=== PATIENT | female | born 1945 | race Caucasian/White ===

== ENCOUNTER 2018-11-11 15:30 | Outpatient (RCR) | payer MEDICARE, SELFPAY | END 2018-11-23 16:00 | disposition home or self-care (01) | LOC: PT 15:30 | PROVIDERS: Visit Provider Family Medicine | DX: M54.2 Cervicalgia (principal); G44.89 Other headache syndrome | CPT/HCPCS: 97012; 97014; 97110; 97140; 97163; G0283 ==

== ENCOUNTER → 2020-08-17 08:25 | Outpatient (CLI) | payer MEDICARE, SELFPAY ==
[2020-08-17 11:41] LABS: Coronavirus 19 IgG Antibody Negative (Negative); Coronavirus 19 IgM Antibody Negative (Negative)
== END ==
PROVIDERS: Visit Provider Internal Medicine Gastroenterology
DX: Z01.89 Encounter for other specified special examinations (principal); Z12.11 Encounter for screening for malignant neoplasm of colon
CPT/HCPCS: 36415; 86328

== ENCOUNTER 2020-08-18 08:28 | Day surgery (SDC) | payer MEDICARE, SELFPAY ==
[2020-08-10 15:04] VITALS: BMI 24.8
[2020-08-18 08:49] VITALS: BP 188/65; PULSE 71; RESP 18; TEMP 36.4; O2SAT 98
[2020-08-18 09:46] VITALS: O2SAT 99
--- NOTE | 2020-08-18 09:52 | HMH.ANESCL ---
[facility] Anesthesia Checklist - Patient Identification Patient Identification: Arm Band - Structural Data Admitted From: Home Planned Operative Procedure/s: colonoscopy Consent for Planned Operative Procedure(s) Verified: Yes Verified Documents: Surgical Consent, History and Physical - NPO Status Verified Time NPO: 00:00 - Additional verifications Anesthesia Reactions: No - Airway Assessment C-Spine Mobility Assessed: Yes (mp2) TMJ Mobility Assessed: Yes Dentition: Good Dentition - Neurological Assessment Level of Consciousness: Awake, Alert - Anesthesia Plan Anesthesia Risk discussed: Yes Anesthesia Plan: Verified ASA Class: II Anesthesia Type: MAC [facility] History I have reviewed the patient's past medical history: Yes Medical History: Reports:: Anxiety, Cancer (skin cancer), Gastroesophageal Reflux Disease(GERD), Hyperlipidemia, Hypertension Denies:: Diabetes Mellitus Type 1, Diabetes Mellitus Type 2, Internal Pacemaker, MRSA, Seizures *Have you ever received a pneumonia vaccine?: Yes *Have you received a flu vaccine this season?: Yes Anesthesia experience/problems:: nac Other Surgeries: Yes: Cancer Surgery (skin), Cholecystectomy, Hysterectomy-Total. No: Pacemaker Amputation: No Fractures: No - *Social History Smoking Status: Never smoker Alcohol Intake: never Substance Use Type: denies use *Occupational Status:: retired Housing: house Household Members: family *Travel in the last 8 weeks: None Family Hx:: No significant family history
--- NOTE | 2020-08-18 10:12 | P.PCN_ITS ---
[facility] Procedure Note Procedure Note:: Colonoscopy Procedure Report: Colonoscopy with cold snare polypectomy Endoscopist: Omar Zuniga II, MD Referring physician: Cory Russell MD Date of Procedure: August 18, 2020 Equipment: Olympus 180 variable stiffness pediatric colonoscope Sedation: MAC sedation Indication: Mrs. Mohan is a 75-year-old female who is here for follow-up screening/surveillance colonoscopy secondary to a personal history of colon polyps (adenomatous polyps). She had a colonoscopy in March 2001 and had a mucosal prolapse polyp removed. Her colonoscopy in May 2004 revealed a diminutive polyp (tubular adenoma x1). Her colonoscopy in February 2010 revealed a single polyp (tubular adenoma) which was removed. Her last colonoscopy revealed 2 small polyps (hyperplastic polyp x1/tubular adenoma x1) which were removed. She is here for follow-up surveillance. She reports no abdominal pain but does get some right flank pain intermittently. She reports no rectal bleeding, change in her bowel habits or weight loss. She reports no family history of colon cancer. Procedure: Prior to the procedure, a history and physical exam was performed, and patient's medications and allergies were reviewed. The risks, benefits and alternatives of the sedation and procedure were discussed with the patient. All questions we re answered and informed consent was obtained. The patient was brought to the procedure room. Patient identification and proposed procedure were verified by the physician and the nurse. The patient was placed in a left lateral decubitus position and the scope was passed under direct vision. Throughout the procedure, the patient's blood pressure, pulse, and oxygen saturations were monitored continuously. The colonoscopy was accomplished without difficulty. The patient tolerated the procedure well. Findings: On digital rectal examination there was normal rectal tone. There were no external hemorrhoids. The colonoscope was introduced through the anal canal to the rectum and advanced to the cecum. The ileocecal valve and appendiceal orifice were identified. The scope was advanced a short distance into the ileum which appeared grossly normal. The scope was then withdrawn into the colon. The cecum, ascending and transverse colon were normal. There were 4 diminutive polyps (descending x2 (4 and 1 mm) and sigmoid x2 (4 and 4 mm)) which were removed via cold snare polypectomy. The remainder of the descending, sigmoid and rectum were normal. There were no other mucosal abnormalities. Upon retroflexion within the rectum there were grade 1 internal hemorrhoids.The preparation was excellent throughout with [place] Preparation Score of 9. The cecal time was 12 minutes. Impression: 1. Diminutive colonic polyps x4 2. Grade 1 internal hemorrhoids Plan: I will follow up the polyp pathology and recommend repeat colonoscopy again in 5 years based upon the polyp histology and number of polyps. I would encourage fiber supplementation on a long-term daily maintenance basis.
[2020-08-18 10:15] VITALS: BP 137/64; PULSE 64; RESP 16; TEMP 36.3; O2SAT 96
[2020-08-18 10:25] VITALS: BP 137/74; PULSE 56; RESP 16; TEMP 36.3; O2SAT 95
[2020-08-18 10:35] VITALS: BP 145/67; PULSE 66; RESP 18; TEMP 36.3; O2SAT 95
[2020-08-18 10:52] VITALS: BP 138/79; PULSE 68; RESP 18; TEMP 36.3; O2SAT 96
== END 2020-08-18 10:54 | disposition home or self-care (01) ==
LOC: OUTP 08:30
PROVIDERS: PCP Family Medicine; Visit Provider Internal Medicine Gastroenterology
PROC: 0DJD8ZZ Inspection of Lower Intestinal Tract, Via Natural or Artificial Opening Endoscopic (ICD-10-PCS; CPT 45378; principal; 2020-08-18 09:30)
DX: Z12.11 Encounter for screening for malignant neoplasm of colon (principal); Z86.010 Personal history of colon polyps; K63.5 Polyp of colon; K64.0 First degree hemorrhoids; E78.5 Hyperlipidemia, unspecified; I10 Essential (primary) hypertension; K21.9 Gastro-esophageal reflux disease without esophagitis; Z85.828 Personal history of other malignant neoplasm of skin; F41.9 Anxiety disorder, unspecified; Z90.49 Acquired absence of other specified parts of digestive tract; Z90.710 Acquired absence of both cervix and uterus; Z88.2 Allergy status to sulfonamides
CPT/HCPCS: 45385; 88305

== ENCOUNTER 2024-02-03 06:44 | Day surgery (SDC) | payer MEDICARE, SELFPAY ==
[2024-02-02 11:44] VITALS: BMI 23.8
[2024-02-03] VITALS (7 sets, daily range): BP systolic 153–188; BP diastolic 63–89; PULSE 45–53; RESP 16–18; TEMP 36.2–36.6; O2SAT 96–100
[2024-02-03] MEDS: CYCLOPENTOLATE 2% OPHTH SOLN 2ML BOTTLE OP ×3 (07:05→07:15)
[2024-02-03] MEDS: PHENYLEPHRINE 2.5% OPHTH SOLN 2ML 0.0500000000000000028 ML OP ×3 (07:05→07:18)
[2024-02-03] MEDS: TETRACAINE 0.5% OPTH SOL 15ML OP ×3 (07:05→07:15)
[2024-02-03] MEDS: SODIUM CHLORIDE 0.9% 10ML FLUSH SYRINGE 10 ML IV (08:33)
[2024-02-03] MEDS: MIDAZOLAM 2MG/2ML VIAL 1 MG IV (08:33)
[2024-02-03] MEDS: LIDOCAINE 1% PF 2ML AMPULE 2 ML IJ (08:40)
[2024-02-03] MEDS: TIMOLOL 0.5% OPTH SOLN 5ML OP (08:40)
[2024-02-03] MEDS: TOBRAMYCIN/DEX OPTH SUSP 2.5ML OP (08:40)
== END 2024-02-03 08:57 | disposition home or self-care (01) ==
PROVIDERS: PCP Family Medicine; Visit Provider Ophthalmology
PROC: (CPT 66984; principal; 2024-02-03 08:00)
DX: H53.149 Visual discomfort, unspecified; H25.811 Combined forms of age-related cataract, right eye
CPT/HCPCS: 66984; V2632

== ENCOUNTER 2024-02-17 09:00 | Day surgery (SDC) | payer MEDICARE, SELFPAY ==
[2024-02-17] VITALS (7 sets, daily range): BP systolic 150–176; BP diastolic 68–75; PULSE 47–60; RESP 16–20; TEMP 36.3–36.6; O2SAT 95–98; BMI 24.7
[2024-02-17] MEDS: TETRACAINE 0.5% OPTH SOL 15ML OP ×3 (09:20→09:30)
[2024-02-17] MEDS: CYCLOPENTOLATE 2% OPHTH SOLN 2ML BOTTLE OP ×3 (09:20→09:30)
[2024-02-17] MEDS: PHENYLEPHRINE 2.5% OPHTH SOLN 2ML 0.0500000000000000028 ML OP ×3 (09:20→09:30)
[2024-02-17] MEDS: SODIUM CHLORIDE 0.9% 10ML FLUSH SYRINGE 10 ML IV ×2 (09:33→10:03)
[2024-02-17] MEDS: MIDAZOLAM 2MG/2ML VIAL 1 MG IV (09:53)
[2024-02-17] MEDS: TOBRAMYCIN/DEX OPTH SUSP 2.5ML OP (10:03)
[2024-02-17] MEDS: TIMOLOL 0.5% OPTH SOLN 5ML OP (10:03)
[2024-02-17] MEDS: LIDOCAINE 1% PF 2ML AMPULE 2 ML IJ (10:03)
== END 2024-02-17 10:17 | disposition home or self-care (01) ==
PROVIDERS: PCP Family Medicine; Visit Provider Ophthalmology
PROC: (CPT 66984; principal; 2024-02-17 12:00)
DX: H25.812 Combined forms of age-related cataract, left eye (principal); H53.149 Visual discomfort, unspecified; H53.8 Other visual disturbances
CPT/HCPCS: 66984; V2632